=== PATIENT | female | born 1930 | race Caucasian/White ===

== ENCOUNTER 2017-10-31 18:14 | Observation (INO) ==
[2017-10-31] MEDS ORDERED: 0.9 % Sodium Chloride 500 ML IVC ONE (18:58)
--- NOTE | 2017-10-31 19:42 | Emergency Department Note ---
Disposition Clinical Impression: Nausea, Impaired ambulation Peripheral vertigo, unspecified Qualifiers: Laterality: unspecified laterality Qualified Code(s): H81.399 - Other peripheral vertigo, unspecified ear Disposition: Admitted As Inpatient Condition: Fair Time of Disposition: 22:18 Dizziness HPI - General Chief Complaint: ED Dizziness Stated Complaint: dizzy Time Seen by Provider: 10/31/17 18:23 Source: patient, EMS Limitations: no limitations Nursing Notes Reviewed: Yes Vital Signs Reviewed: Yes - History of Present Illness HPI Narrative: 87-year-old female complains of acute rapid onset of vertigo room spinning dizziness times one and half hours ago. Patient states that she was making her bed and upon bending forward she suddenly felt dizzy. She also complains of headache pain across the low aspect of her head and sharp and constant without change. Patient states she has had headaches like this in the past as well as a prior episode of vertigo years ago. Patient is unable to remember details pertaining her last episode. Symptoms of vertigo are worse with sitting up but improved with laying back and staying still. Patient denies any lateralizing focal neurologic deficits weakness, tinnitus, worsening hearing loss, recent URI, new cough or congestion, dysuria, hematuria , urinary frequency. Patient denies any prior history of CVA, KS, PE, DVT. - Related Data Home Medications Medication Instructions Recorded Confirmed Aspirin [Lo-Dose Aspirin EC] 81 mg PO DAILY 10/31/17 10/31/17 Lisinopril [Zestril] 20 mg PO DAILY 10/31/17 10/31/17 Lovastatin [Mevacor] 20 mg PO HS 10/31/17 10/31/17 Metoprolol [Lopressor] 25 mg PO BID 10/31/17 10/31/17 Allergies Allergy/AdvReac Type Severity Reaction Status Date / Time Sulfa (Sulfonamide Allergy Anaphylaxis Verified 10/31/17 20:00 Antibiotics) All systems ED: reviewed and negative except as stated. Review of Systems: As Per HPI Constitutional: Denies: fever, chills, weakness Gastrointestinal: Reports: nausea. Denies: abdominal pain, vomiting, diarrhea Musculoskeletal: Denies: back pain, neck pain Neurological: Reports: headache Past Medical History - Past Medical History Attestation: Yes The following information was validated with the patient. Source: patient, nursing notes reviewed Medical history: Reports: no medical history, non-contributory Psychiatric history: Reports: no psych history - Social History Smoking Status: Never smoker Smokeless Tobacco Status: No Alcohol use: Reports: none Drug use: Reports: none Physical Exam Vital Signs Temperature 98.7 F 10/31/17 18:16 Pulse Rate 67 10/31/17 18:16 Respiratory Rate 18 10/31/17 18:16 Blood Pressure 198/91 10/31/17 18:16 O2 Sat by Pulse Oximetry 97 10/31/17 18:16 Temperature 98.7 F 10/31/17 18:16 Pulse Rate 67 10/31/17 18:16 Respiratory Rate 18 10/31/17 18:16 Blood Pressure 198/91 10/31/17 18:16 O2 Sat by Pulse Oximetry 97 10/31/17 18:16 Oxygen Delivery Oxygen Delivery Room Air CONSTITUTIONAL: Well-appearing; well-nourished; A&O X 3, in no apparent distress. Patient afebrile with the only vital sign abdomen leave being hypertension at 198/91. Patient does not have a history of hypertension HEAD: Normocephalic; atraumatic EYES: PERRL, no scleral icterus Ears: Asymmetric hearing. Patient can hear on the left but not on the right, but this is baseline for the patient. NOSE: The nose is normal in appearance without rhinorrhea NECK: No JVD or distended neck veins RESP: Normal chest excursion with respiration; breath sounds clear and equal bilaterally; no wheezes, rhonchi, or rales CARD: Regular rhythm, without murmurs, rub or gallop ABD: Non-distended; non-tender, soft, without rigidity, rebound or guarding,no pulsatile mass CHEST: No pain with palpation SKIN: Normal for age and race; warm and dry without diaphoresis ; no apparent lesions EXTREMITIES: Pulses are 2 plus and equal times 4 extremities, no peripheral edema or calf muscle pain NEUROLOGICAL: Patient is alert and oriented times three. Cranial nerves III- XII are intact. Sensory and motor functions are intact. Strength is 5/5 for flexion and extension in all 4 extremities. Finger to nose testing is equal and normal bilaterally. No dysdiadochokinesis. HINTS exam: Negative for findings of central cause of vertigo. Patient has a horizontal left beating nystagmus without any rotatory component. There is a mild catch-up saccade on head and pulse tests, and no correction on tests of skew - General Limitations: no limitations General appearance: alert, in no apparent distress Course - Reevaluation(s) Reevaluation #1: Patient was ambulated but failed her ambulation test. Current plan is for patient to be admitted. Patient continues to have persistent aggravated vertigo as well. Time: 21:00 Vital Signs Temperature 98.7 F 10/31/17 18:16 Pulse Rate 67 10/31/17 18:16 Respiratory Rate 18 10/31/17 18:16 Blood Pressure 198/91 10/31/17 18:16 O2 Sat by Pulse Oximetry 97 10/31/17 18:16 Temperature 97.7 F 11/01/17 00:14 Pulse Rate 66 11/01/17 00:14 Respiratory Rate 16 11/01/17 00:14 Blood Pressure 153/70 11/01/17 00:14 O2 Sat by Pulse Oximetry 94 11/01/17 00:14 Oxygen Delivery Oxygen Delivery Room Air Dizziness - MDM Narrative Medical decision making narrative: Patient presented with vertigo. History and exam points more peripheral symptoms for vertigo, but given patient's advanced age, I think it is important to rule out central causes with MR studies. Patient is sent for MRI an MRA of the brain. There are negative for central causes for vertigo. Patient was started on meclizine and Benadryl which had no effect on her vertigo and was then given Phenergan. Phenergan helped reduce patient's symptoms. She was then ambulated but was unable to pass ambulation test. Given that the patient is unable to walk, this makes her very high fall risk for further injury and will be admitted for further evaluation and treatment. Patient understands and agrees to treatment and plan for admission. Patient was accepted for admission by the hospitalist Dr. Gratn. - Lab Data Lab results reviewed: Yes I reviewed the patient's lab results. Lab results narrative: Urine 10/31/17 Range/Units 20:45 Urine Color Yellow (Yellow) Urine Clarity Cloudy A (Clear) Urine pH 7.0 (5.0-8.0) pH Units Ur Specific [place] 1.018 (1.010-1.025) Urine Protein Negative (Neg-Trace) mg/dL Urine Glucose (UA) Normal (Normal) mg/dL Result diagrams: 10/31/17 23:28 10/31/17 23:28 Lab Results 10/31/17 Range/Units 20:45 Urine Color Yellow (Yellow) Urine Clarity Cloudy A (Clear) Urine pH 7.0 (5.0-8.0) pH Units Ur Specific [place] 1.018 (1.010-1.025) Urine Protein Negative (Neg-Trace) mg/dL Urine Glucose (UA) Normal (Normal) mg/dL Urine Ketones Negative (Negative) mg/dL Urine Blood Negative (Negative) Urine Nitrite Negative (Negative) Urine Bilirubin Negative (Negative) Urine Urobilinogen Normal (Normal) mg/dL Ur Leukocyte Esterase Trace H (Negative) Urine Microscopic RBC 3-5 H (0-3) per hpf Urine Microscopic WBC 0-3 (0-3) per hpf Ur Squamous Epith Cells Few (None-Few) per lpf Urine Bacteria None Seen (None-Few) per hpf Hyaline Casts None Seen (None-Few) per lpf - Radiology Data Radiology results reviewed: Yes I reviewed the patient's radiology results. Brain MRI 10/31/17 18:50 IMPRESSION: No acute intracranial abnormality. Patent intracranial arteries. D/ / 10/31/2017 20:05:08 Roman Fink MD / sonia Interpreting Provider: Roman Fink MD Head MRA 10/31/17 19:10 IMPRESSION: No acute intracranial abnormality. Patent intracranial arteries. D/ / 10/31/2017 20:05:08 Roman Fink MD / sonia Interpreting Provider: Roman Fink MD - EKG Data EKG attestation: Yes I reviewed and interpreted this EKG. EKG results narrative: EKG taken 10/31/2017 at 1825 hrs. shows a sinus rhythm at a rate of 63 beats a minute no acute ST elevations or depressions any leads, no cures Mey QT prolongation. No change from previous EKG taken 07/05/2014.
[2017-10-31] MEDS ORDERED: *HR* Promethazine 25 MG/ML VIAL IVP ONE (20:38)
[2017-10-31 21:02] LABS: Bilirubin,Urine Negative (Negative); Blood,Urine Negative (Negative); Clarity,Urine Cloudy (Clear); Color,Urine Yellow (Yellow); Glucose,Urine (UA) Normal (Normal); Ketones,Urine Negative (Negative); Leukocyte Esterase,Urine Trace (Negative); Nitrite,Urine Negative (Negative); Protein,Urine Negative (Neg-Trace); Specific Gravity,Urine 1.018 (1.010-1.025); Urobilinogen,Urine Normal (Normal)
[2017-10-31 21:04] LABS: Bacteria,Urine None Seen per hpf (None-Few); Hyaline Casts,Urine None Seen per lpf (None-Few); Squamous Epithelial Cell,Urine Few per lpf (None-Few); WBC,Urine 0-3 per hpf (0-3)
[2017-10-31] MEDS ORDERED: Acetaminophen 325 MG TABLET PO PRN (22:38)
[2017-10-31] MEDS ORDERED: Naloxone 0.4 MG/ML INJ IVP PRN (22:38)
--- NOTE | 2017-10-31 22:42 | Internal Med History&Physical ---
Date of Encounter: 10/31/17 Time of Encounter: 22:39 Internal Medicine - H&P: HPI Chief complaint: dizziness Admitted From: Emergency Dept Plans for Post Hospital Care: Home History of present illness: Ms. Guerrero is a 87 year old female with history of HTN and HLD who presents with an acute episode of spinning sensation she had earlier this evening when she bent down while making her bed. She felt nauseous as well and had a sharp headache. She is "sick to my stomach". She has had an episode like this about 4 years ago but not able to give exact details. Symptoms are worse with head movement still in the ED and better with laying flat. In the ED was noted to have a systolic BP in the low 200s. She did not take her evening dose of metoprolol or lisinopril yet. Her BP is usually controlled. she saw her PCP yesterday and BP was 130s/70s. Had an MRI/MRA brain that was unremarkable in the ED. Given IVF, benadryl, phenergan, and meclizine with some improvement in symptoms but not completely resolved. No fever, chills, vomiting, blurry vision , chest pain, shortness of breath, abdominal pain, diarrhea, constipation, urinary symptoms, numbness, tingling, or feeling weak on one side or the other. Past Med Surg Social Fam HX - Past Medical History Medical history: no medical history, non-contributory Psychiatric history: no psych history - Social History Smoking Status: Never smoker Smokeless Tobacco Status: No Alcohol use: none Drug use: none Internal Medicine - H&P: Meds Aspirin [Lo-Dose Aspirin EC] 81 mg PO DAILY 10/31/17 [History] Lisinopril [Zestril] 20 mg PO DAILY 10/31/17 [History] Lovastatin [Mevacor] 20 mg PO HS 10/31/17 [History] Metoprolol [Lopressor] 25 mg PO BID 10/31/17 [History] 3 Allergy/AdvReac Type Severity Reaction Status Date / Time Sulfa (Sulfonamide Allergy Anaphylaxis Verified 10/31/17 20:00 Antibiotics) All Systems PM: A 10-system review of systems was performed and is negative for pertinent findings except as documented above in the HPI. Review of systems: All systems reviewed are negative except for as mentioned above - Constitutional Vitals: Temp Pulse Resp BP Pulse Ox 98.7 F 73 17 208/93 97 10/31/17 18:16 10/31/17 20:24 10/31/17 20:24 10/31/17 20:24 10/31/17 18:16 Exam: GEN: NAD HEENT: AT, NC, No cyanosis, oral mucosa is moist, No JVD Lymphatics: No lymphadenoapthy Eyes: Extrocular muscles intact, anicteric CVS:RRR. S1, S2, No m/r/g RESP: CTAB ABD: Soft, NT, ND, +BS EXT: No edema, No rashes, 2+ DP NEURO: Nonfocal, CN II-XII intact, No focal motor or sensory deficits Psych: Cooperative, Not anxious or depressed Internal Med - H&P Results - Labs Labs: Urine 10/31/17 Range/Units 20:45 Urine Color Yellow (Yellow) Urine Clarity Cloudy A (Clear) Urine pH 7.0 (5.0-8.0) pH Units Ur Specific [place] 1.018 (1.010-1.025) Urine Protein Negative (Neg-Trace) mg/dL Urine Glucose (UA) Normal (Normal) mg/dL - Impressions ITS Impressions Brain MRI 10/31/17 18:50 IMPRESSION: No acute intracranial abnormality. Patent intracranial arteries. D/ / 10/31/2017 20:05:08 Roman Fink MD / [email or web address] Interpreting Provider: Roman Fink MD Head MRA 10/31/17 19:10 IMPRESSION: No acute intracranial abnormality. Patent intracranial arteries. D/ / 10/31/2017 20:05:08 Roman Fink MD / earnold Interpreting Provider: Roman Fink MD - Assessment and plan (1) Vertigo Current Visit: Yes Status: Acute Assessment and plan: MRI/MRA brain negative. Sounds like vertigo symptoms. ??not sure if her BP being as high as the 200s systolically had something to do with the symptoms. Will try to achieve better BP control. A trial of meclizine TID today. Check TSH. check orthostatics. check B12. PT/OT. (2) Hypertensive urgency Current Visit: Yes Status: Acute Assessment and plan: Will give patient her PO BP meds from home. Will add IV hydralazine PRN. (3) HLD (hyperlipidemia) Current Visit: Yes Status: Acute Assessment and plan: c/w statin Qualifiers: Hyperlipidemia type: unspecified Qualified Code(s): E78.5 - Hyperlipidemia , unspecified (4) DVT prophylaxis Current Visit: Yes Status: Acute Assessment and plan: heparin SQ - Time Spent With Patient Total time spent is greater than 50% in coordination of care (as documented) at patient's floor/unit and/or counseling patient:
[2017-10-31] MEDS ORDERED: Ondansetron 4 MG/2 ML VIAL IVP PRN (23:11)
[2017-10-31] MEDS ORDERED: Lisinopril 20 MG TABLET PO ONE (23:11)
--- NOTE | 2017-10-31 23:28 | Emergency Department Note ---
Disposition Clinical Impression: Nausea Peripheral vertigo, unspecified Qualifiers: Laterality: unspecified laterality Qualified Code(s): H81.399 - Other peripheral vertigo, unspecified ear Disposition: Admitted As Inpatient Condition: Fair General Adult HPI - General Chief complaint: ED Dizziness Stated complaint: dizzy Time Seen by Provider: 10/31/17 18:23 Source: patient, EMS Limitations: no limitations - History of Present Illness Pain Scale: 0 - Related Data Home Medications Medication Instructions Recorded Confirmed Aspirin [Lo-Dose Aspirin EC] 81 mg PO DAILY 10/31/17 10/31/17 Lisinopril [Zestril] 20 mg PO DAILY 10/31/17 10/31/17 Lovastatin [Mevacor] 20 mg PO HS 10/31/17 10/31/17 Metoprolol [Lopressor] 25 mg PO BID 10/31/17 10/31/17 Allergies Allergy/AdvReac Type Severity Reaction Status Date / Time Sulfa (Sulfonamide Allergy Anaphylaxis Verified 10/31/17 20:00 Antibiotics) Constitutional: Denies: fever, chills, weakness Gastrointestinal: Reports: nausea. Denies: abdominal pain, vomiting, diarrhea Musculoskeletal: Denies: back pain, neck pain Neurological: Reports: headache Past Medical History - Past Medical History Medical history: Reports: no medical history, non-contributory Psychiatric history: Reports: no psych history - Social History Smoking Status: Never smoker Smokeless Tobacco Status: No Alcohol use: Reports: none Drug use: Reports: none Physical Exam - General Limitations: no limitations General appearance: alert, in no apparent distress Course Vital Signs Temperature 98.7 F 10/31/17 18:16 Pulse Rate 67 10/31/17 18:16 Respiratory Rate 18 10/31/17 18:16 Blood Pressure 198/91 10/31/17 18:16 O2 Sat by Pulse Oximetry 97 10/31/17 18:16 Temperature 98.7 F 10/31/17 18:16 Pulse Rate 73 10/31/17 20:24 Respiratory Rate 18 10/31/17 23:15 Blood Pressure 188/84 10/31/17 23:15 O2 Sat by Pulse Oximetry 97 10/31/17 18:16 Oxygen Delivery Oxygen Delivery Room Air Medical Decision Making - Lab Data Lab Results 10/31/17 Range/Units 20:45 Urine Color Yellow (Yellow) Urine Clarity Cloudy A (Clear) Urine pH 7.0 (5.0-8.0) pH Units Ur Specific [place] 1.018 (1.010-1.025) Urine Protein Negative (Neg-Trace) mg/dL Urine Glucose (UA) Normal (Normal) mg/dL Urine Ketones Negative (Negative) mg/dL Urine Blood Negative (Negative) Urine Nitrite Negative (Negative) Urine Bilirubin Negative (Negative) Urine Urobilinogen Normal (Normal) mg/dL Ur Leukocyte Esterase Trace H (Negative) Urine Microscopic RBC 3-5 H (0-3) per hpf Urine Microscopic WBC 0-3 (0-3) per hpf Ur Squamous Epith Cells Few (None-Few) per lpf Urine Bacteria None Seen (None-Few) per hpf Hyaline Casts None Seen (None-Few) per lpf Attestation Statement - Attestation Attestation: I examined this patient and my medical decision-making was reviewed with the Resident Physician. I agree with the documented findings, disposition and treatment plan as described except to the extent set forth below. Multiple prior episodes of vertigo, this feels similar. She does have some chronic tinnitus, no change in his symptoms tonight. She is somewhat unsteady on her feet. Symptoms have not been persistent for a couple of hours. No recent URI symptoms. On my exam, her cranial nerves are intact. She has fatigable horizontal nystagmus with leftward gaze. Dr. Leigh's cerebellar exam was normal. She does have a headache, which is also not uncommon for her. Given her age, headache, lack of recent URI symptoms, imaging to rule out posterior fossa pathology was warranted. MRI was negative per the interpretation of the radiologist. She was given multiple rounds of vertigo treatment in the ED, but we are unable to get her symptoms under control. She was unable to walk. She is admitted for observation. If symptoms do not improve in the morning, neurologic consultation will be warranted.
[2017-10-31 23:44] LABS: Basophils % 0.5 %; Eosinophils # 0.1 K/mcL (0.0-0.6); Eosinophils % 0.8 %; Hematocrit 43.4 % (35.3-44.9); Hemoglobin 14.7 g/dL (11.5-15.4); Immature Granulocytes % 0.3 % (0-4); Lymphocytes # 2.2 K/mcL (0.6-4.6); Lymphocytes % 34.1 %; Mean Corpuscular HGB Conc 33.9 g/dL (31.6-35.5); Mean Corpuscular Hemoglobin 33.6 pg (28.0-33.3); Mean Corpuscular Volume 99.1 fL (83.0-100.0); Mean Platelet Volume 10.2 fL (9.4-12.4); Monocytes # 0.5 K/mcL (0.0-1.3); Neutrophils # 3.7 K/mcL (1.6-8.9); Platelet Count 177 K/mcL (140-400); Red Blood Count 4.38 M/mcL (3.82-4.97); Red Cell Distribution Width 13.2 % (11.5-14.5); Segmented Neutrophils % 56.3 %
[2017-11-01 00:05] LABS: BUN/Creatinine Ratio 22 (6-26); Blood Urea Nitrogen 20 mg/dL (8-23); Calcium 9.6 mg/dL (8.6-10.3); Carbon Dioxide 29 mEq/L (23-29); Chloride 109 mEq/L (98-107); Glucose 128 mg/dL (70-105); Osmolality,Calculated 304 (280-300); Potassium 4.3 mEq/L (3.5-5.1); Sodium 145 mEq/L (136-145); eGFR For African Americans > 60 (> 60); eGFR For Non-African Americans 57 (> 60)
[2017-11-01 00:18] LABS: Thyroid Stimulating Hormone 1.393 mcIU/mL (0.340-5.600)
[2017-11-01 05:43] LABS: Hematocrit 41.2 % (35.3-44.9); Mean Corpuscular Hemoglobin 33.1 pg (28.0-33.3); Mean Corpuscular Volume 97.4 fL (83.0-100.0); Mean Platelet Volume 10.4 fL (9.4-12.4); Platelet Count 145 K/mcL (140-400); Red Blood Count 4.23 M/mcL (3.82-4.97); Red Cell Distribution Width 13.4 % (11.5-14.5)
[2017-11-01 05:49] LABS: Immature Granulocytes % 0.2 % (0-4); Lymphocytes # 2.3 K/mcL (0.6-4.6); Lymphocytes % 35.4 %; Neutrophils # 3.4 K/mcL (1.6-8.9); Segmented Neutrophils % 50.8 %
[2017-11-01] MEDS: *HR* Heparin 5,000 UNIT/ML VIAL SQ SCH ×4 (05:49→19:53)
[2017-11-01 05:50] LABS: Basophils # 0.1 K/mcL (0.0-0.2); Basophils % 0.8 %; Eosinophils # 0.1 K/mcL (0.0-0.6); Eosinophils % 1.4 %; Monocytes # 0.8 K/mcL (0.0-1.3); Monocytes % 11.4 %
[2017-11-01 07:07] LABS: BUN/Creatinine Ratio 22 (6-26); Blood Urea Nitrogen 18 mg/dL (8-23); Calcium 9.3 mg/dL (8.6-10.3); Carbon Dioxide 27 mEq/L (23-29); Chloride 113 mEq/L (98-107); Glucose 86 mg/dL (70-105); Magnesium 2.1 mg/dL (1.6-2.6); Osmolality,Calculated 299 (280-300); Potassium 3.8 mEq/L (3.5-5.1); Sodium 144 mEq/L (136-145); eGFR For African Americans > 60 (> 60); eGFR For Non-African Americans > 60 (> 60)
[2017-11-01] MEDS: Aspirin Enteric Coated 81 MG Tablet PO SCH (08:06)
[2017-11-01] MEDS: Lisinopril 20 MG TABLET PO SCH (08:07)
--- NOTE | 2017-11-01 12:29 | Electrocardiograph Report ---
[address] [place] [address] Test Date: 2017-10-31 Pat Name: Latoya Guerrero Department: 103 Room: 3B45 Gender: F Title Coordinator: DEE : 1930 Requested By: Juanita Marquez Order Number: [id number] Reading MD: Diego Heath Measurements Intervals [place] Rate: 63 P: 21 NV: 178 QRS: -43 QRSD: 160 T: 79 QT: 454 QTc: 461 Interpretive Statements SINUS RHYTHM MARKED LEFT AXIS DEVIATION LEFT BUNDLE BRANCH BLOCK Electronically Signed On 11-01-2017 12:27:39 EDT by Diego Heath
--- NOTE | 2017-11-01 16:58 | Internal Med Progress Note ---
Date of Encounter: 11/01/17 Time of Encounter: 16:54 - Assessment and plan (1) Vertigo Current Visit: Yes Status: Acute Assessment and plan: Presented with acute dizziness, worse with position change. Was also having headache. Found to have hypertensive urgency with SBP in the 190s. This is likely contributing to her dizziness as her symptoms resolved with improvement in blood pressure. However, she does have a history of vertigo has been treated off and on over the last 4 years this. MRI, MRA brain negative Continue to control hypertension with home oral anti-HTN medications and when necessary hydralazine No orthostasis noted on orthostatic vitals B12,and TSH Unremarkable. Continue meclizine trial, patient discharged home with meclizine when necessary Continues to have some hypertension with SBP in the 150s. Keep an monitor blood pressure overnight, if no hypertensive events reported consider discharging home. (2) Hypertensive urgency Current Visit: Yes Status: Acute Assessment and plan: Presented with hypertensive urgency, systolic blood pressures in the 190s. Likely contributing to dizziness, dizziness improved with improvement in blood pressure. Blood pressure today systolically in the 150s/160s, Continue home anti-HTN medications and IV hydralazine when necessary, consider adjunct therapy should hypertension resume (3) HLD (hyperlipidemia) Current Visit: Yes Status: Acute Assessment and plan: Continue statin Qualifiers: Hyperlipidemia type: unspecified Qualified Code(s): E78.5 - Hyperlipidemia , unspecified (4) DVT prophylaxis Current Visit: Yes Status: Acute Assessment and plan: heparin 5000 units SQ every 8 hours - Time Spent With Patient Total time spent is greater than 50% in coordination of care (as documented) at patient's floor/unit and/or counseling patient: Greater than 35 minutes - Subjective Interval history: Ms. Guerrero is a 87 year old female with history of HTN and HLD who presents with an acute episode of spinning sensation she had earlier this evening when she bent down while making her bed. She felt nauseous as well and had a sharp headache. She is "sick to my stomach". She has had an episode like this about 4 years ago but not able to give exact details. Symptoms are worse with head movement still in the ED and better with laying flat. Patient is reporting that dizziness has improved since admission. Denies any vision changes, headaches, disequilibrium. Nausea has also subsided. Was seen and examined at bedside, sitting in chair resting comfortably without any additional complaints. - Constitutional Vitals: Temp Pulse Resp BP Pulse Ox 98.1 F 61 14 153/68 96 11/01/17 15:11 11/01/17 15:11 11/01/17 15:11 11/01/17 15:11 11/01/17 15:11 General appearance: Present: cooperative, A&O X 3, answers questions appropriately - Head Head exam: Present: atraumatic, normocephalic - Eye Eye exam: Present: PERRL, conjuntiva pink, sclera anicteric Pupils: Present: PERRL - Neck Neck exam general surgery: Present: supple, trachea midline. Absent: lymphadenopathy - Respiratory Respiratory exam: Present: CTAB. Absent: accessory muscle use, rales, rhonchi, wheezes - Cardiovascular Cardiovascular exam: Present: RRR, +S1, +S2. Absent: diastolic murmur, gallop, rubs, systolic murmur - GI/Abdominal GI/Abdominal exam: Present: normal bowel sounds, soft, no peritoneal signs. Absent: distended, tenderness - Extremities Exam Extremities exam: Present: warm, radial pulses palpable and symmetrical. Absent : calf tenderness, cyanotic, pedal edema - Neurological Exam Neurological exam: Present: CN II-XII intact, oriented X3, no focal deficits. Absent: pronater drift, facial droop, speech deficit - Skin Skin exam: Present: dry, intact Internal Medicine: Result - Labs CBC & Chem 7: 11/01/17 04:00 11/01/17 06:34 Labs: Short CBC 10/31/17 11/01/17 Range/Units 23:28 04:00 WBC 6.5 6.6 (4.3-11.1) K/mcL Hgb 14.7 14.0 (11.5-15.4) g/dL Hct 43.4 41.2 (35.3-44.9) % Plt Count 177 145 (140-400) K/mcL Neutrophils # 3.7 3.4 (1.6-8.9) K/mcL BMP 10/31/17 11/01/17 23:28 06:34 Sodium 145 144 Potassium 4.3 3.8 Chloride 109 H 113 H Carbon Dioxide 29 27 BUN 20 18 Creatinine 0.93 0.81 Glucose 128 H 86 Calcium 9.6 9.3 Consult Discharge Plan - Plan Referrals: Natasha Post MD [Primary Care Provider] -
[2017-11-02] MEDS: *HR* Heparin 5,000 UNIT/ML VIAL SQ SCH (06:08)
[2017-11-02] MEDS: Aspirin Enteric Coated 81 MG Tablet PO SCH (09:36)
[2017-11-02] MEDS: Lisinopril 20 MG TABLET PO SCH (09:37)
[2017-11-02 11:11] VITALS: BP 146/77
--- NOTE | 2017-11-02 14:08 | Discharge Summary ---
- NOTES TO OUTPATIENT PROVIDER Notes to Outpatient Provider: Patient was admitted and seen for dizziness, diagnosis of benign positional vertigo. MRI of head found to be negative, no orthostasis found. Of note she did have some accelerated hypertension which has resolved prior to discharge. Patient may benefit from close monitoring of blood pressure and potential titration/adjunctive therapy of BP medications. She has been instructed to undergo outpatient physical therapy for therapy. Please see hospital course for any further questions Date of Encounter: 11/02/17 Time of Encounter: 14:06 - Discharge Diagnosis (1) Vertigo Priority: Primary Status: Resolved Assessment and Plan: Presented with acute dizziness, worse with position change. Was also having headache. Found to have hypertensive urgency with SBP in the 190s which was likely contributed to her dizziness. Dizziness is improving with improvement of hypertension. History of vertigo with on/off treatment over the last 4 years. B12 and TSH unremarkable MRI of brain negative for acute intracranial abnormality No orthostasis noted throughout stay Patient is medically stable for discharge (2) Hypertensive urgency Priority: Secondary Status: Resolved Assessment and Plan: Presented with hypertensive urgency, systolic blood pressures in the 190s. Blood pressure has improved overnight. Stable and ready for discharge, continue home anti-HTN medications upon discharge (3) HLD (hyperlipidemia) Priority: Secondary Status: Acute Qualifiers: Hyperlipidemia type: unspecified Qualified Code(s): E78.5 - Hyperlipidemia , unspecified (4) DVT prophylaxis Priority: Secondary Status: Acute Hospital course: Ms. Guerrero is a 87 year old female with a PMH of HTN HLD. The patient presents with an acute episode of dizzy sensation that began yesterday evening as well as a sharp headache. She also noted some intermittent nausea. 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 HEENT is reporting that the dizzy sensation is worth with position change. While inpatient she was found to have accelerated hypertension , with improvement of hypertension her symptoms improved as well. MRI/MRA of brain negative for acute intercranial abnormality, no orthostasis noted. Patient would benefit from outpatient physical therapy with vestibular therapy. She is medically stable for discharge. Discharge discussed with: patient, family, nurse - Time Spent with Patient Total time spent providing and/or coordinating discharge services: Greater than 30 minutes - Discharge Medications Home Medications: Aspirin [Lo-Dose Aspirin EC] 81 mg PO DAILY 10/31/17 [History] Lisinopril [Zestril] 20 mg PO DAILY 10/31/17 [History] Lovastatin [Mevacor] 20 mg PO HS 10/31/17 [History] Metoprolol [Lopressor] 25 mg PO BID 10/31/17 [History] Allergies/Adverse Reactions: 3 Allergy/AdvReac Type Severity Reaction Status Date / Time Sulfa (Sulfonamide Allergy Anaphylaxis Verified 10/31/17 20:00 Antibiotics) Date of admission: 10/31/17 22:40 Primary care physician: Natasha Post Consults: 10/31/17 22:42 Consult to Physical Therapy [CONS] Routine Comment: Evaluate, develop and implement POC Reason for Consult: PT eval Does patient have active BEDREST order?: No Is patient medically & hemodynamically stable?: Yes 11/02/17 07:12 Consult to Capacitor Assembler [CONS] Routine Reason for SW Consult: outpt therapy Discharging clinician: Richie Li Anticipated date of discharge: 11/02/17 - Constitutional Vitals: Temp Pulse Resp BP Pulse Ox 97.8 F 69 15 146/77 96 11/02/17 11:08 11/02/17 11:08 11/02/17 11:08 11/02/17 11:08 11/02/17 11:08 General appearance: Present: cooperative, A&O X 3, answers questions appropriately - Head Head exam: Present: atraumatic, normocephalic - Eye Eye exam: Present: PERRL, conjuntiva pink, sclera anicteric Pupils: Present: PERRL - Neck Neck exam general surgery: Present: supple, trachea midline. Absent: lymphadenopathy - Respiratory Respiratory exam: Present: CTAB. Absent: accessory muscle use, rales, rhonchi, wheezes - Cardiovascular Cardiovascular exam: Present: RRR, +S1, +S2. Absent: diastolic murmur, gallop, rubs, systolic murmur - GI/Abdominal GI/Abdominal exam: Present: normal bowel sounds, soft, no peritoneal signs. Absent: distended, tenderness - Extremities Exam Extremities exam: Present: warm, radial pulses palpable and symmetrical. Absent : calf tenderness, cyanotic, pedal edema - Neurological Exam Neurological exam: Present: CN II-XII intact, oriented X3, no focal deficits. Absent: pronater drift, facial droop, speech deficit - Skin Skin exam: Present: dry, intact - Patient Status Disposition: Home, Self-Care Condition: Good Overall status at discharge: patient is back to baseline - Discharge Instructions Instructions: Meclizine (By mouth), Vertigo (DC), Vertigo (GEN), Chronic Hypertension (DC) Follow Up With: Natasha Post MD [Primary Care Provider] - 11/10/17 11:15 am
== END 2017-11-02 14:35 | disposition home or self-care (01) ==
LOC: 3BNU 18:14 → EMEROO 18:14 → 3BNU 23:17
PROVIDERS: ADMIT Internal Medicine; ATTEND Internal Medicine

== ENCOUNTER 2020-09-23 04:04 | Inpatient (IN) ==
[2020-09-23] MEDS ORDERED: Morphine Sulfate 2 MG/ML SYRINGE IVP STA (04:20)
[2020-09-23 04:26] LABS: Basophils # 0.1 K/mcL (0.0-0.2); Basophils % 0.7 %; Eosinophils # 0.2 K/mcL (0.0-0.6); Eosinophils % 2.8 %; Hematocrit 43.4 % (35.3-44.9); Hemoglobin 14.6 g/dL (11.5-15.4); Immature Granulocytes % 0.4 % (0-4); Lymphocytes # 2.5 K/mcL (0.6-4.6); Lymphocytes % 36.5 %; Mean Corpuscular HGB Conc 33.6 g/dL (31.6-35.5); Mean Platelet Volume 9.5 fL (9.4-12.4); Monocytes # 0.8 K/mcL (0.0-1.3); Monocytes % 11.3 %; Neutrophils # 3.3 K/mcL (1.6-8.9); Platelet Count 170 K/mcL (140-400); Red Blood Count 4.43 M/mcL (3.82-4.97); Red Cell Distribution Width 13.2 % (11.5-14.5); Segmented Neutrophils % 48.3 %; White Blood Count 6.8 K/mcL (4.3-11.1)
[2020-09-23 04:32] LABS: Prothrombin Time 11.4 Seconds (9.4-12.1)
[2020-09-23 04:47] LABS: Magnesium 2.1 mg/dL (1.6-2.6); Phosphorous 3.1 mg/dL (2.7-4.5)
[2020-09-23 04:50] LABS: BUN/Creatinine Ratio 29 (6-26); Blood Urea Nitrogen 24 mg/dL (8-23); Calcium 10.1 mg/dL (8.6-10.3); Carbon Dioxide 26 mEq/L (23-29); Chloride 105 mEq/L (98-107); Glucose 116 mg/dL (70-105); Osmolality,Calculated 293 (280-300); Potassium 3.9 mEq/L (3.5-5.1); Sodium 139 mEq/L (136-145); Troponin I < 0.03 ng/mL (< 0.04); eGFR For African Americans > 60 (> 60); eGFR For Non-African Americans > 60 (> 60)
[2020-09-23 06:35] LABS: Bilirubin,Urine Negative (Negative); Blood,Urine Negative (Negative); Clarity,Urine Turbid (Clear); Color,Urine Yellow (Yellow); Glucose,Urine (UA) Normal (Normal); Ketones,Urine Negative (Negative); Leukocyte Esterase,Urine Small (Negative); Mucus,Urine Few per lpf (None-Few); Nitrite,Urine Negative (Negative); Protein,Urine Negative (Neg-Trace); RBC,Urine 0-3 per hpf (0-3); Specific Gravity,Urine 1.013 (1.010-1.025); Squamous Epithelial Cell,Urine Few per hpf (None-Few); Urobilinogen,Urine Normal (Normal)
[2020-09-23] MEDS ORDERED: Naloxone 0.4 MG/ML INJ IVP PRN ×3 (11:48→15:54)
[2020-09-23] MEDS ORDERED: Ondansetron 4 MG/2 ML VIAL IVP PRN ×3 (11:52→15:54)
[2020-09-23] MEDS ORDERED: Melatonin 3 MG TABLET PO PRN ×2 (11:52→15:54)
[2020-09-23] MEDS ORDERED: Ringers Solution, Lactated 1,000 ML IVC SCH ×2 (12:00→15:54)
[2020-09-23] MEDS ORDERED: *HR* OxyCODONE/APAP 5/325 TABLET PO PRN ×2 (12:03→15:54)
[2020-09-23] MEDS ORDERED: *HR* Dextrose 50 % in Water (Vial) 50 ML VIAL IVP PRN ×2 (12:04→15:54)
[2020-09-23] MEDS ORDERED: D5% in Water 1,000 ML IVC PRN ×2 (12:04→15:54)
[2020-09-23] MEDS ORDERED: Dextrose Gel 15 GM/37.5 ML TUBE PO PRN ×4 (12:04→15:54)
[2020-09-23] MEDS ORDERED: *HR* FentaNYL (PF) 100 MCG/2 ML VIAL ONE (12:57)
[2020-09-23] MEDS ORDERED: *HR* Propofol 200 MG/20 ML VIAL IVP ONE (12:57)
[2020-09-23] MEDS ORDERED: Dexamethasone 4 MG/ML VIAL ONE (12:59)
[2020-09-23] MEDS ORDERED: Lidocaine HCL 4 ML Topical Solution (Laryng-O-Jet Kit Sterile Pak) TP ONE (12:59)
[2020-09-23] MEDS ORDERED: *HR* Succinylcholine 200 MG/10 ML VIAL IVP ONE (12:59)
[2020-09-23] MEDS ORDERED: Lidocaine -MPF 2% 2 ML VIAL ONE (12:59)
[2020-09-23] MEDS ORDERED: Ondansetron 4 MG/2 ML VIAL ONE (12:59)
[2020-09-23] MEDS ORDERED: Vancomycin 1,000 MG VIAL ONE (13:01)
[2020-09-23] MEDS ORDERED: Ethanol\\Acetic Acid\\Na Ace\\Ben 1,000 ML IRRIG.SOLN IR ONE (13:01)
[2020-09-23 13:13] LABS: Adenovirus Not Detected (Not Detect); Bordetella Pertussis Not Detected (Not Detect); Chlamydophila pneumoniae Not Detected (Not Detect); Coronavirus 229E Not Detected (Not Detect); Coronavirus HKU1 Not Detected (Not Detect); Coronavirus NL63 Not Detected (Not Detect); Coronavirus OC43 Not Detected (Not Detect); Human Metapneumovirus Not Detected (Not Detect); Human Rhinovirus/Enterovirus Not Detected (Not Detect); Influenza A Subtype 2009 H1 Not Detected (Not Detect); Influenza B Not Detected (Not Detect); Mycoplasma pneumoniae Not Detected (Not Detect); Parainfluenza Virus 1 Not Detected (Not Detect); Parainfluenza Virus 2 Not Detected (Not Detect); Parainfluenza Virus 3 Not Detected (Not Detect); Parainfluenza Virus 4 Not Detected (Not Detect); Respiratory Syncytial Virus Not Detected (Not Detect); SARS-CoV-2 Not Detected (Not Detect)
[2020-09-23] MEDS ORDERED: Povidone-Iodine 45 ML, Sodium Chloride IRRigation 1,000 ML IR ONE (13:15)
[2020-09-23] MEDS ORDERED: *HR* Midazolam HCl 2 MG/2 ML VIAL ONE (13:42)
[2020-09-23] MEDS ORDERED: ROPIVACAINE/PF/NS 0.25% 1 EACH SYRINGE INTRAART ONE (13:43)
[2020-09-23] MEDS ORDERED: *HR* Metoprolol 5 MG/5 ML VIAL IVP PRN (13:43)
[2020-09-23] MEDS ORDERED: *HR* HYDROmorphone (PF) 1 MG/ML SYRINGE IVP PRN (13:43)
[2020-09-23] MEDS ORDERED: Ropivacaine/PF 0.5% 30 ML VIAL ONE (13:43)
[2020-09-23] MEDS ORDERED: *HR* OxyCODONE Immed Rel 5 MG TABLET PO PRN ×2 (13:43→15:54)
[2020-09-23] MEDS ORDERED: ceFAZolin 2,000 MG in Water for inj. (sterile) 20 ML IVP ONE (13:46)
[2020-09-23] MEDS ORDERED: EPHEDrine 50 MG/ML VIAL ONE (14:20)
[2020-09-23 15:40] LABS: Hematocrit 41.3 % (35.3-44.9); Hemoglobin 13.4 g/dL (11.5-15.4)
[2020-09-23 15:45] LABS: Estimated Average Glucose 105 mg/dl; Hemoglobin A1C 5.3 %
[2020-09-23] MEDS ORDERED: MOM Conc 10 ML UD.LIQ PO PRN (15:54)
[2020-09-23] MEDS ORDERED: Sennosides 8.6 MG TABLET PO PRN (15:54)
[2020-09-23] MEDS ORDERED: Insulin LISPRO 300 UNITS/3 ML VIAL SUBQ SCH (18:00)
[2020-09-23] MEDS: CeFAZolin 2 GM/120 ML BAG IVPB SCH (20:01)
[2020-09-24] MEDS: CeFAZolin 2 GM/120 ML BAG IVPB SCH (04:35)
[2020-09-24] MEDS ORDERED: *HR* Heparin 5,000 UNIT/ML VIAL SQ SCH (06:00)
[2020-09-24] MEDS ORDERED: Aspirin Enteric Coated 81 MG Tablet PO SCH (09:00)
[2020-09-24] MEDS ORDERED: lisinopriL 20 MG TABLET PO SCH ×2 (09:00)
[2020-09-24] MEDS: *HR* Enoxaparin 30 MG/0.3 ML SYRINGE SQ SCH (14:44)
[2020-09-24] MEDS: Aspirin Enteric Coated 81 MG Tablet PO SCH (17:11)
[2020-09-25 01:44] LABS: Hematocrit 35.8 % (35.3-44.9); Mean Platelet Volume 10.3 fL (9.4-12.4); Platelet Count 146 K/mcL (140-400); Red Blood Count 3.58 M/mcL (3.82-4.97); Red Cell Distribution Width 13.8 % (11.5-14.5)
[2020-09-25 01:47] LABS: Hemoglobin 11.8 g/dL (11.5-15.4)
[2020-09-25 01:57] LABS: BUN/Creatinine Ratio 33 (6-26); Blood Urea Nitrogen 25 mg/dL (8-23); Calcium 8.9 mg/dL (8.6-10.3); Carbon Dioxide 26 mEq/L (23-29); Chloride 104 mEq/L (98-107); Glucose 131 mg/dL (70-105); Osmolality,Calculated 290 (280-300); Potassium 3.8 mEq/L (3.5-5.1); Sodium 137 mEq/L (136-145); eGFR For African Americans > 60 (> 60); eGFR For Non-African Americans > 60 (> 60)
[2020-09-25] MEDS: *HR* Enoxaparin 30 MG/0.3 ML SYRINGE SQ SCH ×2 (05:16→17:31)
[2020-09-25] MEDS: Aspirin Enteric Coated 81 MG Tablet PO SCH (09:23)
[2020-09-25] MEDS: lisinopriL 20 MG TABLET PO SCH (09:24)
[2020-09-26] MEDS: *HR* Enoxaparin 30 MG/0.3 ML SYRINGE SQ SCH ×2 (06:51→18:12)
[2020-09-26 07:11] LABS: Basophils % 0.4 %; Eosinophils # 0.1 K/mcL (0.0-0.6); Eosinophils % 1.1 %; Hemoglobin 11.4 g/dL (11.5-15.4); Immature Granulocytes % 0.5 % (0-4); Lymphocytes # 2.6 K/mcL (0.6-4.6); Lymphocytes % 24.1 %; Mean Corpuscular HGB Conc 31.7 g/dL (31.6-35.5); Mean Corpuscular Hemoglobin 32.2 pg (28.0-33.3); Mean Corpuscular Volume 101.7 fL (83.0-100.0); Mean Platelet Volume 10.3 fL (9.4-12.4); Monocytes # 1.2 K/mcL (0.0-1.3); Monocytes % 10.8 %; Neutrophils # 6.8 K/mcL (1.6-8.9); Platelet Count 143 K/mcL (140-400); Red Blood Count 3.54 M/mcL (3.82-4.97); Red Cell Distribution Width 13.6 % (11.5-14.5); Segmented Neutrophils % 63.1 %; White Blood Count 10.7 K/mcL (4.3-11.1)
[2020-09-26 07:23] LABS: BUN/Creatinine Ratio 31 (6-26); Blood Urea Nitrogen 20 mg/dL (8-23); Calcium 8.9 mg/dL (8.6-10.3); Carbon Dioxide 29 mEq/L (23-29); Chloride 105 mEq/L (98-107); Glucose 94 mg/dL (70-105); Osmolality,Calculated 286 (280-300); Potassium 4.1 mEq/L (3.5-5.1); Sodium 137 mEq/L (136-145); eGFR For African Americans > 60 (> 60); eGFR For Non-African Americans > 60 (> 60)
[2020-09-26] MEDS: lisinopriL 20 MG TABLET PO SCH (08:25)
[2020-09-26] MEDS: Aspirin Enteric Coated 81 MG Tablet PO SCH (08:25)
[2020-09-27] MEDS: *HR* Enoxaparin 30 MG/0.3 ML SYRINGE SQ SCH (05:17)
[2020-09-27] MEDS: Aspirin Enteric Coated 81 MG Tablet PO SCH (08:48)
[2020-09-27] MEDS: lisinopriL 20 MG TABLET PO SCH (08:48)
[2020-09-27 11:04] VITALS: BP 156/78
[2020-09-27 11:49] LABS: Adenovirus Not Detected (Not Detect); Bordetella Pertussis Not Detected (Not Detect); Chlamydophila pneumoniae Not Detected (Not Detect); Coronavirus 229E Not Detected (Not Detect); Coronavirus HKU1 Not Detected (Not Detect); Coronavirus NL63 Not Detected (Not Detect); Coronavirus OC43 Not Detected (Not Detect); Human Metapneumovirus Not Detected (Not Detect); Human Rhinovirus/Enterovirus Not Detected (Not Detect); Influenza A Subtype 2009 H1 Not Detected (Not Detect); Influenza B Not Detected (Not Detect); Mycoplasma pneumoniae Not Detected (Not Detect); Parainfluenza Virus 1 Not Detected (Not Detect); Parainfluenza Virus 2 Not Detected (Not Detect); Parainfluenza Virus 3 Not Detected (Not Detect); Parainfluenza Virus 4 Not Detected (Not Detect); Respiratory Syncytial Virus Not Detected (Not Detect); SARS-CoV-2 Not Detected (Not Detect)
== END 2020-09-27 12:46 | DRG 483 ==
LOC: 3ANU 04:04 → EMEROOARM 04:04 → SUATTDRO 11:31 → 3ANU 12:28 → 3NENU 15:14
PROVIDERS: ADMIT General Practice; ATTEND Internal Medicine